=== PATIENT | female | born 1935 | race Caucasian/White ===

== ENCOUNTER 2016-12-23 08:43 | Observation (INO) | payer MEDICARE, MEDICAID ==
[~2016-12-23] VITALS: Ht 157.5 cm; Wt 67.3 kg
[~2016-12-23 08:43] MED LIST: AMLO-512 PO; AMYL1CAP63 PO; ATOR20TA86 PO; BENA20 PO; CLOP75 PO; CeFAZolin 2 GM/DEXTROSE 50 ML IV ONE; FLUT16H NASAL; FentaNYL CITRATE-PF 100 MCG/2 ML VIAL IVP ONE; HYDR25TA PO; LEVO125T4 PO; LINA145C PO; LORA1TAB3 PO; NITR.4 SL; OMEP20 PO; PROP225C11 PO; RINGERS SOLUTION,LACTATED 1,000 ML IV ONE; SODIUM CHLORIDE 0.9% 1,000 ML IV ONE; VITAD1000 PO
[2016-12-23] MEDS ORDERED: CeFAZolin 2 GM/DEXTROSE 50 ML IV ONE (09:00)
[2016-12-23] MEDS ORDERED: IOHEXOL 240 MG/ML 20 ML VIAL ONE ×2 (10:48)
[2016-12-23] MEDS ORDERED: BUPIVACAINE 0.25%/EPI 1:200,000/PF 10 ML VIAL INJ ONE (10:59)
[2016-12-23] MEDS ORDERED: BACITRACIN 28.4 GM OINTMENT TP PRN (11:00)
[2016-12-23] MEDS ORDERED: FentaNYL CITRATE-PF 100 MCG/2 ML VIAL IVP PRN (12:00)
[2016-12-23] MEDS ORDERED: MEPERIDINE-PF 25 MG/ML SYRINGE IVP PRN (12:00)
[2016-12-23] MEDS ORDERED: HYDROmorphone 2 MG/ML SYRINGE IVP PRN (12:00)
[2016-12-23] MEDS: OXYGEN THERAPY IH SCH (12:00)
[2016-12-23] MEDS ORDERED: NITROGLYCERIN 0.4 MG SUBLINGUAL TABLET #25 SL PRN (12:15)
[2016-12-23] MEDS ORDERED: LORazepam 1 MG TABLET PO PRN (12:15)
[2016-12-23] MEDS ORDERED: OMEPRAZOLE 20 MG CAPSULE PO PRN (12:15)
[2016-12-23 12:45] VITALS: BP 135/66
[2016-12-23 15:30] VITALS: BP 131/67
[2016-12-23] MEDS: ATORVASTATIN CALCIUM 20 MG TABLET PO SCH (17:27)
[2016-12-23 19:46] VITALS: BP 119/56
[2016-12-23 20:00] VITALS: BP 133/69
[2016-12-23] MEDS ORDERED: OxyCODONE HCL/ACETAMINOPHEN 5-325 MG TABLET PO PRN (21:00)
[2016-12-23] MEDS: DOCUSATE SODIUM 100 MG CAPSULE PO SCH (21:29)
[2016-12-23 23:39] VITALS: BP 107/61
[2016-12-24 04:40] VITALS: BP 140/86
[2016-12-24 07:37] VITALS: BP 141/80
[2016-12-24] MEDS: DOCUSATE SODIUM 100 MG CAPSULE PO SCH (07:54)
[2016-12-24] MEDS: ATORVASTATIN CALCIUM 20 MG TABLET PO SCH (07:54)
[2016-12-24] MEDS: AmLODIPine BESYLATE 10 MG TABLET PO SCH ×2 (07:55→08:10)
[2016-12-24] MEDS: OXYGEN THERAPY IH SCH (08:00)
[2016-12-24] MEDS ORDERED: BENAZEPRIL HCL 20 MG TABLET PO SCH (09:00)
[2016-12-24] MEDS ORDERED: LEVOTHYROXINE SODIUM 125 MCG TABLET PO SCH (09:00)
[2016-12-24] MEDS ORDERED: HYDROCHLOROTHIAZIDE 25 MG TABLET PO SCH (09:00)
[2016-12-24] MEDS ORDERED: CLOPIDOGREL BISULFATE 75 MG TABLET PO SCH (09:00)
[2016-12-24] MEDS ORDERED: CHOLECALCIFEROL (VIT D3) 1,000 UNITS TABLET PO SCH (09:00)
[2016-12-24] MEDS ORDERED: LINACLOTIDE 145 MCG CAPSULE PO SCH (09:00)
[2016-12-24] MEDS ORDERED: FLUTICASONE PROPIONATE 50 MCG/SPRAY 16 GM NASAL SPRAY NASAL SCH (09:00)
[2016-12-24 11:25] VITALS: BP_SYST 118; BP_SYST 121; BP_DIAS 56; BP_DIAS 61
[2016-12-24] MEDS ORDERED: LIDOCAINE HCL/PF 2% 5 ML VIAL IM ONE (15:56)
[2016-12-24] MEDS ORDERED: SUCCINYLCHOLINE CHLORIDE 20 MG/ML 10 ML VIAL IVP ONE (15:56)
[2016-12-24] MEDS ORDERED: PROPOFOL 1% 20 ML VIAL IVP ONE (15:56)
== END 2016-12-24 15:57 | disposition home or self-care (01) ==
LOC: 4E 08:43
PROVIDERS: ADMIT Orthopaedic Surgery Orthopaedic Surgery of the Spine; ATTEND Orthopaedic Surgery Orthopaedic Surgery of the Spine
DX: M48.50XA Collapsed vertebra, not elsewhere classified, site unspecified, initial encounter for fracture (principal); M81.0 Age-related osteoporosis without current pathological fracture; M54.5 Low back pain; X58.XXXA Exposure to other specified factors, initial encounter; Y92.89 Other specified places as the place of occurrence of the external cause; Y93.89 Activity, other specified; Y99.8 Other external cause status
CPT/HCPCS: 22514; 87081; 97116; 97162; 97165; 97530; C1713; G0238; G0378 ×2; G8981; G8982; G8987; G8988; G8989; J0330; J0690; J2704; J3010; J3490; Q9966; J7030